=== PATIENT | male | born 1965 | race Caucasian/White ===

== ENCOUNTER 2018-04-28 10:55 | Emergency (ER) | payer OTHER ==
[~2018-04-28] VITALS: Ht 193 cm; Wt 108.9 kg
[2018-04-28] MEDS ORDERED: ATORVASTATIN CA40 MG PO (11:10)
[2018-04-28] MEDS ORDERED: LISINOPRIL20 MG PO (11:10)
[2018-04-28] MEDS ORDERED: VITAMIN D250000 UNIT PO (11:10)
[2018-04-28] MEDS ORDERED: OMEPRAZOLE40 MG PO (11:11)
--- OUTSIDE RECORDS SUMMARY | 2018-04-28 11:27 | XMS | Clinical Summary ---
Demographics + + + | Address | [address] | | | [place] [address] | + + + | Home Phone | | + + + | Preferred Language | Unknown | + + + | Marital Status | Single | + + + | Church Affiliation | Unknown | + + + | Race | Unknown | + + + | Ethnic Group | Other Race | + + + Author + + + | Author | NON REVENUE LOCATIONS | + + + | Organization | NON REVENUE LOCATIONS | + + + | Address | Unknown | + + + | Phone | Unavailable | + + + Care Team Providers + +------+ + | Care Robotic Maintenance Technician Name | Role | Phone | + +------+ + | No Pcp Per Patient | PP | Unavailable | + +------+ + Source Comments [facility] both [facility] and [facility] Allergies Not on File Current Medications Not on file Active Problems Not on file Social History + +-------+ +--------+------+ | Tobacco Use | Types | Packs/Day | Years | Date | | | | | Used | | + +-------+ +--------+------+ | Never Assessed | | | | | + +-------+ +--------+------+ + + + | Sex Assigned at | Date Recorded | | | | + + + | Not on file | | + + + Plan of Treatment + + + + + | Health Maintenance | Due Date | Last Done | Comments | + + + + + | INFLUENZA VACCINE | | | | | (FLU SHOT) | 8 | | | + + + + + Results Not on filefrom Last 3 Months Insurance + +--------+ +--------+ + + | Payer | Benefi | Subscriber | Type | Phone | Address | | | t Plan | ID | | | | | | / | | | | | | | Group | | | | | + +--------+ +--------+ + + | [facility] | PHP | [phone] | PPO | [phone] | [address] | | | [address] | | | [address] | [place] [address] | | | [place]W | | | | | | | [place] | | | | | + +--------+ +--------+ + + | [place] [place] | OHP | xxxxxxxx | Medica | [phone] [address] [address] | | | PLUS | | id | [phone] | [place] [address] | | | OPEN | | | | | | | CARD | | | | | + +--------+ +--------+ + + | [employer] | BONE | [phone] | Agency | | [address] | | | [place] | | | | [place] [address] | | | TXP | | | | | + +--------+ +--------+ + + + +--------+ +--------+ + + | Guarantor Name | Accoun | Relation to | Date | Phone | Billing Address | | | t Type | Patient | of | | | | | | | | | | + +--------+ +--------+ + + | GUY GARVIN | Person | Self [birth year] Home: | [id number] [address] [facility] [address] | | [place] | [place] | | 1965 | [phone] | [facility] [place] [address] | | | cedric | | | [phone] | | + +--------+ +--------+ + + | ANGELINA GARVIN | Donor | Other | [birth year] | Home: | [address] | | [place] | | | 1990 | [phone] | [place] [id number] | | | | | | [phone] | | + +--------+ +--------+ + +"
--- OUTSIDE RECORDS SUMMARY | 2018-04-28 11:27 | XMS | Clinical Summary ---
Demographics + + + | Address | [address] | | | [place] [address] | + + + | Home Phone | | + + + | Preferred Language | Unknown | + + + | Marital Status | Single | + + + | Hoahaoism Affiliation | Unknown | + + + [...] Team Providers + +------+ + | Care Industrial Safety And Health Specialist Name | Role | Phone | + +------+ + | No Pcp Per Patient | PP | Unavailable | + +------+ + Source Comments [facility] is fully live on both [facility] and [facility] & [facility] Allergies Not on File Current Medications Not [...] | [address] | | | [address] | [place] [address] | | | [place] | | | | | | | [place] | | | | | + +--------+ +--------+ + + | [employer] [place] | OHP | xxxxxxxx | Medica | [phone] | [address] [address] | | | PLUS | | id | [phone] | [place] [address] | | | OPEN | | | | | | | CARD | | | | | + +--------+ +--------+ + + | [employer] | BONE | [phone] | Agency | | [address] | | | [place] | | | | [place] [address] | | | TXP | | | [...] | Self [birth year] | Home: | [address] [facility] [address] | | [place] | ad[place]ina/[place] | | 1965 | [phone] | [facility] [place] [address] | | | cedric | | | [phone] | | + +--------+ +--------+ + + | ANGELINA GARVIN | Donor | Other | [birth year] | Home: | [address] | | [place] | | | 1990 | [phone] | [place] [id number] | | | | | | [phone] | | + +--------+ +--------+ + +"
--- NOTE | 2018-04-29 14:44 | EKG ---
[facility] [address] [facility] [place], [place] [address] Signed Normal sinus rhythm Left axis deviation Right bundle branch block Abnormal ECG No previous ECGs available Confirmed by DANIEL DOOLEY MD ([id number]) on 04/29/2018 2:43:52 PM Electronically Signed By: DANIEL DOOLEY MD 04/29/18 1444 PATIENT NAME: VIRGIE CASIANOGUY DANGELO Electrocardiogram DATE OF : 65 PHYSICIAN: DANIEL DOOLEY MD REPORT #: [id number] REPORT IS CONFIDENTIAL AND NOT TO BE RELEASED WITHOUT AUTHORIZATION
== END 2018-04-28 12:25 | disposition home or self-care (01) ==
LOC: ED 10:55
DX: R07.89 Other chest pain (principal); I10 Essential (primary) hypertension; F17.200 Nicotine dependence, unspecified, uncomplicated; Z88.0 Allergy status to penicillin; Z79.899 Other long term (current) drug therapy
CPT/HCPCS: 71045; 80053; 83690; 83880; 84484; 85025; 85379; 93005; 93010; 96361; 96374; 99285; J7030